=== PATIENT | female | born 1960 | race Caucasian/White ===

== ENCOUNTER 2022-10-20 10:19 | Day surgery (SDC) | payer OTHER ==
[~2022-10-20] VITALS: Ht 160 cm; Wt 80.8 kg
[~2022-10-20 10:19] MED LIST: SODIUM CHLORIDE 0.9% 1,000 ML ONE
[2022-10-20] MEDS ORDERED: ATOR40TA28 PO (11:29)
[2022-10-20] MEDS ORDERED: METO25XL PO (11:31)
[2022-10-20] MEDS ORDERED: MIDAZOLAM HCL 2 MG/2 ML VIAL ONE (12:09)
[2022-10-20] MEDS ORDERED: FentaNYL CITRATE PF 100 MCG/2 ML VIAL ONE ×2 (12:09→14:26)
[2022-10-20 12:55] LABS: COVID AG,FIA SOURCE NASAL SWAB
== END 2022-10-20 15:50 | disposition home or self-care (01) ==
LOC: SURGERY 10:19
PROVIDERS: ATTEND Internal Medicine Gastroenterology
DX: R19.4 Change in bowel habit (principal); K64.8 Other hemorrhoids; K29.70 Gastritis, unspecified, without bleeding; B96.81 Helicobacter pylori [H. pylori] as the cause of diseases classified elsewhere; Z20.822 Contact with and (suspected) exposure to COVID-19; Z88.6 Allergy status to analgesic agent; Z79.899 Other long term (current) drug therapy; Z90.49 Acquired absence of other specified parts of digestive tract; Z90.721 Acquired absence of ovaries, unilateral; Z98.890 Other specified postprocedural states
CPT/HCPCS: 45380; 43239; 87426; 88305; 88312; 88313; 99152; 99153; C1769; J3010; J2250; J7030; C9803